=== PATIENT | female | born 1955 | race African-American/Black ===

== ENCOUNTER 2020-07-25 09:40 | Emergency (ER) | payer OTHER ==
[~2020-07-25] VITALS: Ht 167.6 cm; Wt 86.0 kg
[2020-07-25 10:37] VITALS: BP 152/85
== END 2020-07-25 11:23 | disposition home or self-care (01) ==
LOC: ER 09:55
DX: S00.11XA Contusion of right eyelid and periocular area, initial encounter (principal); I10 Essential (primary) hypertension; E78.5 Hyperlipidemia, unspecified; Y04.0XXA Assault by unarmed brawl or fight, initial encounter; Y93.89 Activity, other specified; Y92.89 Other specified places as the place of occurrence of the external cause; Y99.8 Other external cause status
CPT/HCPCS: 99282